=== PATIENT | male | born 1980 | race Caucasian/White ===

== ENCOUNTER 2016-05-28 18:08 | Emergency (ER) | payer SELFPAY ==
[2016-05-28 18:45] VITALS: RESP 18; TEMP 98
--- NOTE | 2016-05-29 00:53 | PDOC ---
Foot / Ankle Injury - General Chief Complaint: Lower Extremity Problem/Injury Stated Complaint: Right lower leg and foot pain Date Seen by Provider: 05/28/16 Time Seen by Provider: 17:25 Source: POSITIVE: Patient Exam Limitations: POSITIVE: No limitations Nurse's Notes Reviewed & Considered: Yes - History of Present Illness Initial Comments: The patient is a 35 year old male. He complains of a 3 week history of pain to the right foot. States his pain is mostly located over the second and third metatarsal heads and somewhat over the calcaneus. He states he was diagnosed with gout 3 weeks ago and was placed on anti-inflammatory medications and pain medicine and he states that this seemed to help, but then his symptoms have recurred. No swelling. No redness or warmth. No history of trauma. No sensory, motor or vascular deficits. Have you received a tetanus shot in the past 10 years?: Unknown Location: Right Foot Timing: REPORTS: Constant, Gradual Duration: >1 week (3 weeks) Severity: Moderate Quality: REPORTS: "Pain" Context: DENIES: Fall, Twist, Direct Blow, Stub, Laceration, Burn, Barefoot, Wearing Shoes, Other Modifying Factors: REPORTS: Other (exacerbated by walking and direct palpation over the sole of his right foot) Associated Symptoms: DENIES: Tingling Distally, Numbness Distally, Swelling, Snapping Sensation, Popping Sensation, Other Any Prior Injuries Related to Current Complaint?: No - Patient Allergies Allergies/Adverse Reactions: Allergies Allergy/AdvReac Type Severity Reaction Status Date / Time Penicillins Allergy NOT Verified 05/28/16 18:20 APPLICABLE - Patient Home Medications Home Medications: Home Medications HYDROcodone/APAP 10/325 Tab [[place] 10/325 Tab] 1 tab PO Q6H PRN #25 tab Indomethacin 25 mg PO Q8H #45 capsule 05/28/16 Past Medical History - heen HEENT History: Denies History Cardiovascular History: Denies History Respiratory History: Denies History Gastrointestinal History: Denies History Genitourinary History: Denies History Endocrine History: Denies History Musculoskeletal History: Other (please comment) Additional Musculoskeletal History: Hx of left elbow repair with hardware placement. Neurological History: Denies History Blood Disorders: Denies History Psychiatric History: Denies History Cancer History: Denies History In Past Year Been Physically Harmed or Verbally Threatened: No History of MDRO: No Tobacco Use: Former Smoker Alcohol Use: Heavy Type of alcohol normally used: Beer How much alcohol do you normally drink a day?: Pt. initially denied alcohol abuse or use...pt. smells of alcohol. Substance Use Type: None Previous Surgical History: Yes Type / Date of Surgery: left elbow Significant Family History: No pertinent family hx Past Medical History Reviewed: Reviewed - No Changes ROS - Limitations ROS Limitations: No Limitations Constitution: REPORTS: Denies Symptoms Cardiovascular: REPORTS: Denies Cardiac Symptoms Respiratory: REPORTS: Denies Resp Symptoms Neurological: REPORTS: Denies Neuro Symptoms Gastrointestinal: REPORTS: Denies GI Symptoms Endocrine: REPORTS: Denies Symptoms Musculoskeletal: REPORTS: Other (Pain, sole of right foot) Genitourinary: REPORTS: Denies Symptoms Eyes: REPORTS: Denies Symptoms ENT: REPORTS: Denies Symptoms Skin: REPORTS: Denies Skin Symptoms Lympathic: REPORTS: Denies Lympathic Symptoms Immunologic: POSITIVE: Denies Symptoms Psychiatric: POSITIVE: Denies Psych Symptoms Foot / Ankle Exam - General Appearance General Appearance: POSITIVE: Alert, Cooperative, No Acute Distress, No Evidence of Trauma - Extremities Foot: POSITIVE: Soft Tissue Tenderness, Other (see diagram). NEGATIVE: Bony Tenderness, Swelling, Ecchymosis, Limited ROM d/t Pain, Antonio. ROM d/t Decr. Funct., Deformity, Nail Injury, Complete Avulsion, Partial Avulsion, Subungual Hematoma Ankle: POSITIVE: Normal Inspection, Non-Tender, Normal ROM, Stable Gait: POSITIVE: Antalgic Gait Neuro: POSITIVE: Sensation Normal, Motor Normal Vascular: POSITIVE: No Vascular Compromise, Full Pulses, Equal Pulses Tendons: POSITIVE: Tendon Function Normal Skin: POSITIVE: Warm, Dry - Respiratory / CVS Respiratory / CVS: POSITIVE: Chest Non-Tender, No Respiratory Distress, Heart Sounds Normal, Regular Rate/Rhythm, Breath Sounds Normal Peripheral Pulses: Radial (R): 2+, Radial (L): 2+, Dorsalis-pedis (R): 2+, Dorsalis-pedis (L): 2+ Images - Lower Extremities Feet: 1 - Discomfort on palpation 2 - Discomfort on palpation Foot / Ankle Progress - Results Reviewed by me Pain Medication Addressed: POSITIVE: Yes (indomethacin and hydrocodone/APAP) School/Work Release Addressed: POSITIVE: Yes Xrays/CTs/US Reviewed by me: Yes Discussed with Radiologist: No Radiology Results: POSITIVE: Right, Foot, Normal Radiology Findings: X-ray right foot normal - Patient's Progress Re-Examine Time:: 19:10 Re-Examine Comment: Unchanged. Diagnosis discussed with patient; exercises for plantar fasciitis explained. Status: POSITIVE: Unchanged, Re-Examined - Consult Counseled: POSITIVE: Patient, RE: Radiology Results, RE: DX, RE: Need for F/U Patient Care Time - Estimated PCT Patient Care Time (In Minutes): 25 Vital Signs - Recent Vital Signs Vital Signs: Vital Signs (Last 8 hours) Temp Pulse Resp BP Pulse Ox 05/28/16 18:08 98.0 F 98 18 133/91 94 - VS Reviewed Vital Signs Reviewed: Yes Discharge Clinical Impression: Plantar fasciitis of right foot Discharge Disposition: Discharged to Home Condition: Stable Prescriptions / Orders: Indomethacin 25 mg PO Q8H #45 capsule HYDROcodone/APAP 10/325 Tab [[place] 10/325 Tab] 1 tab PO Q6H PRN #25 tab PRN Reason: Pain Patient Instructions Given at Discharge: Plantar Fasciitis (ED) Additional Instructions: Indomethacin, 2 tablets every 8 hours for 5 days and then 1 tablet every 8 hours for 5 days. Hydrocodone/APAP, one every 6 hours as necessary for pain. Plantar fasciitis exercises as described. Follow-up with your cryptologic technician in 10 days if not improved. Return here as necessary. Follow Up With: NONE,NONE [Primary Care Provider] - (Instructions as above. Follow-up with podiatry if not improving well in 10 days. Return here as necessary.)
--- NOTE | 2016-05-29 11:21 | DI ---
RIGHT FOOT, 05/28/2016 5:34 PM: Clinical History: Right foot pain. Previous Exam: 05/10/2016. 3 views are submitted. There is no acute soft tissue, osseous, or joint abnormality. Reading: Normal right foot exam. There has been no interval change.
== END 2016-05-28 19:32 | disposition home or self-care (01) ==
LOC: ER 18:08
DX: M72.2 Plantar fascial fibromatosis (principal)
CPT/HCPCS: 73630; 99282